=== PATIENT | female | born 1985 | race Caucasian/White ===

== ENCOUNTER 2018-10-14 18:45 | Emergency (ER) | payer OTHER ==
[2018-10-14 19:07] VITALS: BP 116/76; PULSE 78; RESP 18; TEMP 98; O2SAT 100
[2018-10-14] MEDS ORDERED: Oxycodone/Acetaminophen 5/325 mg Tab PO STA (19:31)
[2018-10-14] MEDS ORDERED: Oxycodone/Acetaminophen 5/325 mg Tab ONE (19:36)
--- NOTE | 2018-10-14 20:41 | C.PDOC ---
History Of Present Illness 32 year old female presents to ED s/p falling on the street 2 hours ago. Patient reports that she twisted both ankles. She notes more severe pain in the right ankle than the left. Patient denies any numbness, weakness, trauma to the head, chest pain, abdominal pain or impact. Time Seen by Provider: 10/14/18 19:08 Chief Complaint (Nursing): Lower Extremity Problem/Injury History Per: Patient History/Exam Limitations: no limitations Onset/Duration Of Symptoms: Hrs (2) Current Symptoms Are (Timing): Still Present - Ankle/Foot Description Of Injury: Twisted Past Medical History Reviewed: Historical Data, Nursing Documentation, Vital Signs Vital Signs: Last Vital Signs Temp 98 F 10/14/18 19:04 Pulse 78 10/14/18 19:04 Resp 18 10/14/18 19:04 BP 116/76 10/14/18 19:04 Pulse Ox 100 10/14/18 19:04 - Medical History PMH: No Chronic Diseases Surgical History: No Surg Hx Family History: States: Unknown Family Hx - Social History Hx Alcohol Use: No Hx Substance Use: No Review Of Systems Constitutional: Negative for: Fever, Chills, Weakness Cardiovascular: Negative for: Chest Pain Gastrointestinal: Negative for: Abdominal Pain Musculoskeletal: Positive for: Other (pain to both ankles ) Neurological: Negative for: Weakness, Numbness, Dizziness Physical Exam - Physical Exam Appears: Non-toxic Skin: Normal Color, Warm, Dry Head: Atraumatic, Normacephalic Neck: Normal ROM, Supple Chest: Symmetrical, No Deformity Cardiovascular: Rhythm Regular, No Murmur Respiratory: No Accessory Muscle Use Gastrointestinal/Abdominal: Soft, No Tenderness Extremity: Tenderness (tenderness to the ankles bilaterally, more tenderness to the top of the right foot), No Swelling Pulses: Left Dorsalis Pedis: Normal, Right Dorsalis Pedis: Normal Neurological/Psych: Oriented x3, Normal Speech, Normal Cognition ED Course And Treatment O2 Sat by Pulse Oximetry: 100 (in RA) Progress Note: X-rays of both ankles and the right foot were taken for the patient. Patient was given Percocet for the pain. Patient's X-rays were negative. Patient was given an air cast and crutches. Patient recommeneded orthopedic follow up. Re-evaluation. Patient feels better. Discussed results and plan with patient who expresses understanding. All questions answered and there is agreement with the plan to discharge home with instructions. Patient stable for discharge. Return if symptoms persist or worsen. Disposition - Disposition Referrals: Geremias Mchugh III, MD [Staff Provider] - Disposition: HOME/ ROUTINE Disposition Time: 20:39 Condition: STABLE Additional Instructions: Follow up with PMD and Orthopedist within 1-2 days. Return to ED if feel worse. Prescriptions: Ibuprofen [Motrin Tab] 600 mg PO Q8 #30 tab traMADol/Acetaminophen [Ultracet 325 MG-37.5 MG] 1 tab PO Q6 PRN #20 tab PRN Reason: Pain Instructions: Ankle Sprain (DC) Forms: [employer] (Maori) Print Language: ALBANIAN - Clinical Impression Clinical Impression: Ankle sprain - PA / [employer] / Resident Statement MD/DO has reviewed & agrees with the documentation as recorded. (Maggie Shea) - Scribe Statement The provider has reviewed the documentation as recorded by the Scribe (Maggie Shea) All medical record entries made by the Scribe were at my direction and personally dictated by me. I have reviewed the chart and agree that the record accurately reflects my personal performance of the history, physical exam, medical decision making, and the department course for this patient. I have also personally directed, reviewed, and agree with the discharge instructions and disposition.
--- NOTE | 2018-10-15 08:49 | RAD ---
Date of service: 10/14/2018 PROCEDURE: HISTORY: fall COMPARISON: None TECHNIQUE: Three views each ankle FINDINGS: No fracture or dislocation. Soft tissue swelling more pronounced lateral to the right fibula-right lateral malleolus. IMPRESSION: No fracture or dislocation. Right lateral Brenna malleolar soft tissue swelling.
--- NOTE | 2018-10-15 09:00 | RAD ---
Date of service: 10/14/2018 PROCEDURE: Right Foot Radiographs. HISTORY: fall COMPARISON: None. FINDINGS: BONES: There is irregular lucency over an apparent fused 5th middle-distal phalanx. Given the history of trauma-fracture here is a consideration. This may be acute or subacute. Correlate clinically with the timing. Note should be made that infection can also not be excluded. Fracture ends are approximately 2 mm. Probable benign bone island over the 1st distal phalanx. The 5th distal toe soft tissues are slightly hyperdense. JOINTS: Trace 1st metatarsal-phalangeal joint arthrosis. SOFT TISSUES: As above. OTHER FINDINGS: None. IMPRESSION: Fracture 5th [id number] fused middle -distal phalanx affected-as referenced above. Fracture ends are approximately 2 mm. Comments: An arrow is pointing towards the tarsus-no gross fracture here radiographically appreciated.. If further evaluation is needed based on clinical symptomatology, consider more sensitive evaluation with MRI right midfoot regarding the tarsal bones. Comments: Study marked for PA review .
== END 2018-10-14 20:49 | disposition home or self-care (01) ==
LOC: C.ER 18:45
DX: S93.401A Sprain of unspecified ligament of right ankle, initial encounter (principal); W18.30XA Fall on same level, unspecified, initial encounter; Y92.410 Unspecified street and highway as the place of occurrence of the external cause